=== PATIENT | female | born 1995 | race Caucasian/White ===

== ENCOUNTER 2020-12-02 12:32 | Emergency (ER) | payer OTHER ==
[2020-12-02 12:50] VITALS: BP 120/69; TEMP 98.1; BMI 21.0
[2020-12-02 14:12] VITALS: PULSE 74
== END 2020-12-02 13:47 | disposition home or self-care (01) ==
LOC: JER 12:32
DX: R10.13 Epigastric pain (principal); R14.2 Eructation; R11.0 Nausea
CPT/HCPCS: 99283-25